=== PATIENT | female | born 1970 | race Caucasian/White ===

== ENCOUNTER 2022-04-08 09:45 | Emergency (ER) | payer BC ==
[2022-04-08 10:01] VITALS: BP 140/63
--- NOTE | 2022-04-08 10:34 | XRAY Report ---
PROCEDURE: Wrist 4 View RT INDICATIONS: Trauma TECHNIQUE: 4 views of the wrist were acquired. COMPARISON: None FINDINGS: Bones: Distal radius fracture with mild impaction. No dislocations. No suspicious bony lesions. Scaphoid view: Intact. Soft tissues: No suspicious soft tissue calcifications. IMPRESSION: Distal radius fracture with mild impaction. Reviewed by: Samson Benavides MD on 04/08/2022 10:32 AM PDT Approved by: Samson Benavides MD on 04/08/2022 10:32 AM PDT Station ID: [id number]
--- NOTE | 2022-04-08 11:45 | ED Physician Documentation ---
PD HPI UPPER EXT INJURY - Stated complaint Stated Complaint: R ARM INJURY - Chief complaint Chief Complaint: Trauma Ext - History obtained from History obtained from: Patient - Additonal information Additional information: She was grooming her horse earlier today and the horse moved and she had a ground-level mechanical fall onto her dominant right wrist. Pain is moderate but declines pain medication. No other injuries. She is right-handed. 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 : None HEENT: None Psych: None Musculoskeletal: Osteoarthritis Derm: None - Past Surgical History Past Surgical History: Yes Ortho: ACL reconstruction - Present Medications Home Medications: Ambulatory Orders Medication Instructions Recorded Confirmed Levothyroxine [Synthroid] mcg PO DAILY 04/08/22 - Allergies Allergies/Adverse Reactions: Allergies Allergy/AdvReac Type Severity Reaction Status Date / Time Penicillins Allergy Rash Verified 04/08/22 10:01 - Social History Does the pt smoke?: No Smoking Status: Never smoker Does the pt drink ETOH?: Yes Does the pt have substance abuse?: No - Immunizations Immunizations are current?: Yes PD ED PE NORMAL - Vitals Vital signs reviewed: Yes - General General: Alert and oriented X 3, No acute distress - Cardiac Cardiac: RRR, No murmur - Respiratory Respiratory: No respiratory distress, Clear bilaterally - Abdomen Abdomen: Non tender - Extremities Extremities: Other (Swelling and tenderness of the right distal radius without significant deformity. Normal neurovascular function in the right hand. No right elbow tenderness.) - Neuro Neuro: Alert and oriented X 3, Normal speech Results - Vitals Vitals: Vital Signs - 24 hr 04/08/22 09:48 Temperature 36.3 C L Heart Rate 78 Respiratory 16 Rate Blood Pressure 140/63 H O2 Saturation 99 Oxygen O2 Source Room air - EKG (time done) 0955 Rate: Rate (enter#) (64) Rhythm: NSR (Frequent PACs), LAE [place]: Normal Intervals: Prolonged QT Ischemia: Non specific changes. No: ST elevation c/w ischemia, ST depression Compare to prior EKG: Old EKG unavailable Computer interpretation: Agree with computer - Rads (name of study) Right wrist x-ray shows distal impacted radius fracture Radiology: EMP read contemporaneously Procedures - Splint (location) RUE Splint applied by: Physician Type of splint: Fiberglass, Short arm, Thumb spica Other: Patient tolerated well, No complications, Neurovascular intact PD MEDICAL DECISION MAKING - ED course ED course: 51-year-old woman has an isolated right wrist injury after a fall with fractures she is splinted and Ortho follow-up is advised. Incidentally the triage nurse noted that on a pulse oximeter during triage she had a low heart rate. This was never corroborated electronically but because of that an EKG was done which does shows some findings including supraventricular bigeminy and a long QT. Given this, review of systems was done specifically querying syncope, chest pain, unexplained shortness of breath or other cardiac symptoms, none of which she had. She is on no medications that would cause long QT. Given that she is asymptomatic, I do not think urgent work-up is needed, but discussed with her that she does need follow-up for the abnormal EKG. Departure - Departure Disposition: 01 Home, Self Care Clinical Impression: Abnormal EKG Fracture of right distal radius Qualifiers: Encounter type: initial encounter Fracture type: closed Fracture morphology: Colles' Qualified Code(s): S52.531A - Colles' fracture of right radius, initial encounter for closed fracture Condition: Good Record reviewed to determine appropriate education?: Yes Instructions: ED Fx Forearm Radius Ulna No Redu Requ Follow-Up: [facility] [Provider Group] - Within 1 week Comments: You were seen today for a distal radius fracture. Because of an episode of low heart rate to the nurse did an EKG in triage which is abnormal and shows premature atrial contractions that are frequent and a long QT interval. For this, follow-up with your primary care physician, next available appointment for consideration for echocardiography, possible stress testing, and consideration for cardiology referral. For the actual fracture, keep the splint on and dry, follow-up with the orthopedist within A week to 10 days for reevaluation, possible casting versus consideration for operation if they think the impaction of the fracture necessitates reduction and fixation.
== END 2022-04-08 11:51 | disposition home or self-care (01) ==
LOC: ED 09:45
DX: S52.531A Colles' fracture of right radius, initial encounter for closed fracture (principal); W18.30XA Fall on same level, unspecified, initial encounter; Y93.F9 Activity, other caregiving; R94.31 Abnormal electrocardiogram [ECG] [EKG]
CPT/HCPCS: 29125; 93005; 99282; 99283

== ENCOUNTER 2022-04-13 08:00 | Outpatient (CLI) | payer BC ==
--- NOTE | 2022-04-13 13:19 | XRAY Report ---
PROCEDURE: Wrist 3 View RT INDICATIONS: RIGHT WRIST PAIN TECHNIQUE: 3 views of the wrist were acquired. COMPARISON: 04/08/2022 FINDINGS: Bones: Again noted is impacted fracture involving distal radial shaft. Wrist alignment is unchanged f rom prior study. No new fracture or dislocation. No suspicious bony lesions. Scaphoid view: Scaphoid is grossly intact. Soft tissues: No suspicious soft tissue calcifications. IMPRESSION: Impacted fracture involving distal radial shaft unchanged from prior study. No new fracture or disloc ation. Reviewed by: Gilberto Douglas MD on 04/13/2022 1:17 PM PDT Approved by: Gilberto Douglas MD on 04/13/2022 1:17 PM PDT Station ID: [id number]
== END 2022-04-13 23:59 | disposition home or self-care (01) ==
LOC: DI.WOS 08:00
PROVIDERS: ATTEND Orthopaedic Surgery
DX: S52.301D Unspecified fracture of shaft of right radius, subsequent encounter for closed fracture with routine healing (principal)

== ENCOUNTER 2022-04-14 08:00 | Outpatient (CLI) | payer BC ==
--- NOTE | 2022-04-14 16:25 | XRAY Report ---
PROCEDURE: Wrist 2 View RT INDICATIONS: WRIST FX POST REDUCTION IN CAST TECHNIQUE: 2 views of the wrist were acquired. COMPARISON: 04/13/2022 FINDINGS: Cast material obscures fine bone detail. There is decreased visualization of an impacted distal radiu s fracture. No significant change in angulation. Radiocarpal and distal radioulnar joint alignment re yunier normal. IMPRESSION: Stable appearance of distal radius fracture post cast placement. Reviewed by: Adina Red MD on 04/14/2022 4:24 PM PDT Approved by: Adina Red MD on 04/14/2022 4:24 PM PDT Station ID: [id number]
== END 2022-04-14 23:59 | disposition home or self-care (01) ==
LOC: DI.WOS 08:00
PROVIDERS: ATTEND Orthopaedic Surgery
DX: S52.531A Colles' fracture of right radius, initial encounter for closed fracture (principal)

== ENCOUNTER 2022-05-05 08:00 | Outpatient (CLI) | payer BC ==
--- NOTE | 2022-05-05 19:03 | XRAY Report ---
PROCEDURE: Wrist 3 View RT INDICATIONS: RIGHT WRIST FRACTURE TECHNIQUE: 3 views of the wrist were acquired. COMPARISON: Right wrist radiographs 04/14/2022 FINDINGS: Bones: Interval removal of cast. Alignment is likely not significantly changed of the distal radius f racture. Bony callus is present adjacent to the fracture plane. Soft tissues: No suspicious soft tissue calcifications. IMPRESSION: Similar alignment of the distal radius fracture. Reviewed by: Armen Sands MD on 05/05/2022 7:02 PM PDT Approved by: Armen Sands MD on 05/05/2022 7:02 PM PDT Station ID: [id number]
== END 2022-05-05 23:59 | disposition home or self-care (01) ==
LOC: DI.WOS 08:00
PROVIDERS: ATTEND Orthopaedic Surgery
DX: S52.531D Colles' fracture of right radius, subsequent encounter for closed fracture with routine healing (principal)

== ENCOUNTER 2022-05-26 14:04 | Outpatient (CLI) | payer BC ==
--- NOTE | 2022-05-26 11:14 | XRAY Report ---
PROCEDURE: Wrist 3 View RT INDICATIONS: RIGHT WRIST FRACTURE TECHNIQUE: 3 views of the wrist were acquired. COMPARISON: X-ray right wrist, 04/08/2022, 04/13/2022, 04/14/2022 and 05/05/2022. FINDINGS: Bones: There is a healing fracture of the distal radial metaphysis. The alignment is normal. No susp icious bony lesions. Mild significant joint disease in radiocarpal joint, triscaphe joint, multiple carpal metacarpal joints. Osteopenia. Soft tissues: No suspicious soft tissue calcifications. IMPRESSION: Stable healing distal radial fracture. Reviewed by: Sabrina Medrano MD on 05/26/2022 11:13 AM PST Approved by: Sabrina Medrano MD on 05/26/2022 11:13 AM PST Station ID: [id number]
== END 2022-05-26 14:05 | disposition home or self-care (01) ==
LOC: DI.WOS 14:04
PROVIDERS: ATTEND Orthopaedic Surgery
DX: S52.531D Colles' fracture of right radius, subsequent encounter for closed fracture with routine healing (principal)

== ENCOUNTER 2022-12-21 21:30 | Emergency (ER) | payer BC ==
--- NOTE | 2022-12-21 22:02 | ED Physician Documentation ---
PD HPI NVD - Stated complaint Stated Complaint: FITCH/VOMIT - Chief complaint Chief Complaint: Abd Pain - History obtained from History obtained from: Patient - History of Present Illness Timing - onset: Today Timing - duration: Hours Timing - details: Abrupt onset, Still present, Waxing and waning Associated symptoms: Other (nausea and vomiting headache) Contributing factors: No: Sick contact, Bad food, Recent antibiotics, Alcohol use, Anticoagulated, Diabetes Improved by: Laying still Worsened by: Other (drinking excess fluids) Similar symptoms before: No diagnosis Recently seen: Not recently seen - Additonal information Additional information: Tonya Perez is a 52-year-old female who comes to the emergency department today with a complaint of a headache she awoke with followed by nausea. She has had some vomiting. She usually has some Zofran to take and she has run out. She has a history of thyroid disease and has recently had her dose reduced about 2 months ago.She reports periodically awakening with a headache associated with nausea. She does not have photophobia with this. She usually feels that if she drinks an adequate amount of water her symptoms will resolve. Today she drank water and vomited all of the water. Review of Systems Constitutional: reports: Weight Loss. denies: Fever, Chills, Myalgias, Sweats Eyes: denies: Decreased vision Ears: denies: Ear pain Nose: denies: Rhinorrhea / runny nose, Congestion Throat: denies: Sore throat Cardiac: denies: Chest pain / pressure, Palpitations Respiratory: denies: Dyspnea, Cough GI: reports: Nausea, Vomiting. denies: Abdominal Pain, Constipation, Diarrhea : denies: Dysuria, Frequency Skin: denies: Rash Musculoskeletal: denies: Neck pain, Back pain, Extremity pain Neurologic: reports: Headache. 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 HEENT: None Psych: None Musculoskeletal: Osteoarthritis Derm: None - Past Surgical History Past Surgical History: Yes Ortho: ACL reconstruction - Present Medications Home Medications: Ambulatory Orders Medication Instructions Recorded Confirmed Levothyroxine [Synthroid] mcg PO DAILY 04/08/22 Ondansetron Odt [Zofran] 4 mg TL Q6H PRN #10 tablet 12/21/22 - Allergies Allergies/Adverse Reactions: Allergies Allergy/AdvReac Type Severity Reaction Status Date / Time Penicillins Allergy Rash Verified 04/08/22 10:01 - Social History Does the pt smoke?: No Smoking Status: Never smoker Does the pt drink ETOH?: Yes Does the pt have substance abuse?: No - Immunizations Immunizations are current?: Yes PD ED PE NORMAL - Vitals Vital signs reviewed: Yes (hypertensive) - General General: Alert and oriented X 3, No acute distress, Well developed/nourished - HEENT HEENT: Atraumatic, PERRL, EOMI - Neck Neck: Supple, no meningeal sign, No bony TTP - Cardiac Cardiac: RRR, No murmur - Respiratory Respiratory: No respiratory distress, Clear bilaterally - Abdomen Abdomen: Soft, Non tender - Back Back: No CVA TTP, No spinal TTP - Derm Derm: Normal color, Warm and dry, No rash - Extremities Extremities: No deformity, No edema - Neuro Neuro: Alert and oriented X 3, inspector process 2-12 intact, No motor deficit, No sensory deficit, Normal speech Eye Opening: Spontaneous Motor: Obeys Commands Verbal: Oriented GCS Score: 15 - Psych Psych: Normal mood, Normal affect Results - Vitals Vitals: Vital Signs - 24 hr 12/21/22 21:36 Temperature 36.5 C Heart Rate 79 Respiratory 16 Rate Blood Pressure 144/90 H O2 Saturation 99 Oxygen O2 Source Room air - Labs Labs: Laboratory Tests 12/21/22 12/21/22 12/21/22 22:04 22:04 22:04 WBC 9.8 RBC 5.06 Hgb 13.8 Hct 42.4 MCV 83.8 MCH 27.3 MCHC 32.5 RDW 13.2 Plt Count 309 MPV 9.4 Neut # (Auto) 7.3 H Lymph # (Auto) 1.7 [place] # (Auto) 0.6 Eos # (Auto) 0.1 Baso # (Auto) 0.1 Absolute Nucleated RBC 0.00 Nucleated RBC % 0.0 Sodium 139 Potassium 3.9 Chloride 104 Carbon Dioxide 26 Anion Gap 9.0 BUN 10 Creatinine 0.7 Estimated GFR (MDRD) 87 L Glucose 110 H Calcium 9.4 Total Bilirubin 1.1 H AST 17 ALT 16 Alkaline Phosphatase 61 Total Protein 7.8 Albumin 4.0 Globulin 3.8 Albumin/Globulin Ratio 1.1 Lipase 31 TSH < 0.08 L Free T4 1.55 Free T3 pg/mL Urine Color Urine Clarity Urine pH Ur Specific [place] Urine Protein Urine Glucose (UA) Urine Ketones Urine Occult Blood Urine Nitrite Urine Bilirubin Urine Urobilinogen Ur Leukocyte Esterase Ur Microscopic Review Urine Culture Comments 12/21/22 12/21/22 22:04 22:11 WBC RBC Hgb Hct MCV MCH MCHC RDW Plt Count MPV Neut # (Auto) Lymph # (Auto) [place] # (Auto) Eos # (Auto) Baso # (Auto) Absolute Nucleated RBC Nucleated RBC % Sodium Potassium Chloride Carbon Dioxide Anion Gap BUN Creatinine Estimated GFR (MDRD) Glucose Calcium Total Bilirubin AST ALT Alkaline Phosphatase Total Protein Albumin Globulin Albumin/Globulin Ratio Lipase TSH Free T4 Free T3 pg/mL 4.22 H Urine Color YELLOW Urine Clarity CLEAR Urine pH 5.5 Ur Specific [place] <=1.005 Urine Protein NEGATIVE Urine Glucose (UA) NEGATIVE Urine Ketones 15 H Urine Occult Blood TRACE-INTA Urine Nitrite NEGATIVE Urine Bilirubin NEGATIVE Urine Urobilinogen 0.2 (NORMAL) Ur Leukocyte Esterase NEGATIVE Ur Microscopic Review NOT INDICATED Urine Culture Comments NOT INDICATED Procedures - IVC sono (time) 2153 Bedside IVC sono: IVC measures (cm) (1.86), IVC collapsed c insp (cm) (1.02), Euvolemia PD Medical Decision Making - ED course Complexity details: reviewed old records, reviewed results, re-evaluated patient, considered differential, d/w patient Reviewed Lab Results: We reviewed a complete blood count showing a normal white blood cell count normal hemoglobin hematocrit and platelets with normal indices chemistries were unremarkable with normal electrolytes normal kidney function normal liver function. We did test thyroid functions and found abnormalities. We found her TSH is less than 0.08 and her free T4 normal at 1.55 her free T3 was elevated at 4.22. These laboratory values of thyroid function are an indication of a need to reduce the dose of thyroid further. A urinalysis is unremarkable. ED course: 52-year-old female presents with a headache and vomiting feeling that she is dehydrated. We did test her for dehydration with interrogation of the inferior vena cava with POCUS. We found the patient to be euvolemic. She does not require intravenous fluid. We did administer a dose of Zofran which resolved her nausea. She was concerned about her thyroid functions and we tested the thyroid functions and found that she needs a further reduction in her dose. She believes her dose is 75 mcg and she had previously been on 100. I am recommended she use 50 mcg. She still has 100 mcg pills and she will break those in half and follow-up with her primary care doctor and we will provide her with some Zofran. Departure - Departure Disposition: 01 Home, Self Care Clinical Impression: Thyroid trouble Vomiting Qualifiers: Vomiting type: unspecified Nausea presence: with nausea Qualified Code(s): R11.2 - Nausea with vomiting, unspecified Condition: Stable Instructions: Thyroid Stimulating Hormone, ED Diet Vomiting Diarrhea Follow-Up: Bety Brown MD [Primary Care Provider] - Prescriptions: Ondansetron Odt [Zofran] 4 mg TL Q6H PRN #10 tablet PRN Reason: Nausea / Vomiting Comments: Tonya today we found your thyroid stimulating hormone was low and in the range where we need to make an adjustment to your dose of Synthroid. My recommendation is to decrease your dose to 50 mcg. This may or may not have anything to do with your nausea. We are providing you with some medication for nausea and this has been E scribed to the community pharmacy in [place]. A follow-up with Dr. Brown is indicated.
[2022-12-21 22:19] LABS: BASOPHILS # (AUTO) 0.1 10^3/uL (0.0-0.1); EOSINOPHILS # (AUTO) 0.1 10^3/uL (0.0-0.7); EOSINOPHILS % (AUTO) 0.6 %; HCT - HEMATOCRIT 42.4 % (37.0-47.0); HGB - HEMOGLOBIN 13.8 g/dL (12.0-16.0); LYMPHOCYTES # (AUTO) 1.7 10^3/uL (1.5-3.5); LYMPHOCYTES % (AUTO) 17.2 %; MEAN CORPUSCULAR HEMOGLOBIN 27.3 pg (27.0-31.0); MEAN CORPUSCULAR HGB CONC 32.5 g/dL (32.0-36.0); MEAN CORPUSCULAR VOLUME 83.8 fL (81.0-99.0); MEAN PLATELET VOLUME 9.4 fL (7.9-10.8); MONOCYTES # (AUTO) 0.6 10^3/uL (0.0-1.0); MONOCYTES % (AUTO) 5.7 %; NEUTROPHILS # (AUTO) 7.3 10^3/uL (1.5-6.6); NEUTROPHILS % (AUTO) 75.2 %; PLT - PLATELET COUNT 309 10^3/uL (130-450); RED BLOOD COUNT 5.06 10^6/uL (4.20-5.40); RED CELL DISTRIBUTION WIDTH 13.2 % (12.0-15.0); WHITE BLOOD COUNT 9.8 x10^3/uL (4.8-10.8)
[2022-12-21 22:21] LABS: BILIRUBIN,URINE NEGATIVE (NEGATIVE); GLUCOSE, URINE (UA) NEGATIVE (NEGATIVE); KETONES,URINE (UA) 15 mg/dL (NEGATIVE); LEUKOCYTE ESTERASE, URINE NEGATIVE (NEGATIVE); NITRITE,URINE NEGATIVE (NEGATIVE); OCCULT BLOOD,URINE TRACE-INTA (NEGATIVE); PH,URINE 5.5 PH (5.0-7.5); PROTEIN,URINE NEGATIVE (NEGATIVE); UROBILINOGEN,URINE 0.2 (NORMAL) E.U./dL (NORMAL)
[2022-12-21 22:23] LABS: CLARITY,URINE CLEAR (CLEAR)
[2022-12-21 22:23] LABS: ALBUMIN/GLOBULIN RATIO 1.1 (1.0-2.2); BILIRUBIN,TOTAL 1.1 mg/dL (0.2-1.0); CALCIUM 9.4 mg/dL (8.5-10.3); CREATININE 0.7 mg/dL (0.4-1.0); POTASSIUM 3.9 mmol/L (3.5-5.0); TOTAL PROTEIN 7.8 g/dL (6.7-8.2)
[2022-12-21 22:39] LABS: THYROID STIMULATING HORMONE < 0.08 uIU/mL (0.34-5.60)
[2022-12-21 22:42] LABS: FREE T4 (FREE THYROXINE) 1.55 ng/dL (0.58-1.64)
[2022-12-21] MEDS ORDERED: ONDANSETRON ODT 4 MG TABLET TL STA (23:35)
[2022-12-22] MEDS ORDERED: ACETAMINOPHEN 325 MG TABLET PO STA (00:21)
[2022-12-22 00:43] VITALS: BP 137/64
== END 2022-12-22 00:41 | disposition home or self-care (01) ==
LOC: ED 21:30
DX: R94.6 Abnormal results of thyroid function studies (principal); R11.2 Nausea with vomiting, unspecified
CPT/HCPCS: 36415; 80053; 81003; 83690; 84439; 84443; 84481; 85025; 99283; 99284; A9270; Q0162; 81001; 87086